=== PATIENT | male | born 1960 | race Caucasian/White ===

== ENCOUNTER 2017-08-21 09:01 | Emergency (ER) | payer OTHER ==
[~2017-08-21] VITALS: Ht 160 cm; Wt 90.7 kg
[2017-08-21 09:01] VITALS: BP_SYST 132
[2017-08-21] MEDS ORDERED: LEVO25TA7 PO (09:58)
[2017-08-21] MEDS ORDERED: QUET25TA34 PO (09:58)
[2017-08-21] MEDS ORDERED: BIOT25007 PO (09:58)
[2017-08-21] MEDS ORDERED: [UNRECOGNIZED DRUG - CODE] PO (09:58)
[2017-08-21] MEDS ORDERED: FOLI0.4T2 PO (09:58)
[2017-08-21] MEDS ORDERED: CHOL500037 PO (09:58)
[2017-08-21] MEDS ORDERED: FLAX100031 PO (09:58)
[2017-08-21] MEDS ORDERED: TURM1CAP PO (09:58)
[2017-08-21] MEDS ORDERED: TRIA1CAP53 PO (09:58)
[2017-08-21] MEDS ORDERED: DILT180C54 PO (09:58)
[2017-08-21 10:00] VITALS: BP_SYST 132
== END 2017-08-21 10:00 | disposition home or self-care (01) ==
LOC: SED 09:01
DX: R05 Cough (principal); I10 Essential (primary) hypertension; F31.9 Bipolar disorder, unspecified; Z90.89 Acquired absence of other organs; Z90.49 Acquired absence of other specified parts of digestive tract
CPT/HCPCS: 71045; 99283